=== PATIENT | male | born 1975 | race Caucasian/White ===

== ENCOUNTER 2021-10-29 01:48 | Emergency (ER) | payer MEDICAID, SELFPAY ==
--- NOTE | ~2021-10-29 | XR_ITS ---
EXAMINATION: XR CHEST CLINICAL INFORMATION: Overdose COMPARISON: 10/28/2021 TECHNIQUE: Frontal view of the chest was obtained. FINDINGS: Redemonstrated right hemidiaphragm elevation, likely with adjacent basilar atelectasis. Mild atelectasis is also suspected at the left base. No evidence of pneumothorax. Trace pleural effusions are difficult to exclude. No overt pulmonary edema. The cardiomediastinal contour is unremarkable. No acute osseous findings are seen. XR/XR chest 1V IMPRESSION: Elevated right hemidiaphragm with mild bibasilar opacities more suggestive of atelectasis. Trace pleural effusions cannot be excluded.
--- NOTE | ~2021-10-29 | CT_ITS ---
EXAMINATION: CT CERVICAL SPINE WITHOUT CONTRAST CLINICAL INFORMATION: Altered mental status, overdose, pain COMPARISON: None TECHNIQUE: Multidetector helical imaging was performed through the cervical spine. Coronal and sagittal reformatted images were created. This CT examination was performed using dose optimization techniques as appropriate, variously including the following: *Automated exposure control *Adjustment of mA and/or kV according to patient size (this includes techniques or standardized protocols for targeted exams where dose is matched to indication/reason for exam; i.e. extremities or head) *Use of iterative reconstruction technique DLP: 562 mGy-cm FINDINGS: Evaluation is limited due to motion artifact. There is anatomic alignment of the vertebral bodies and posterior elements. Vertebral body heights are maintained. There is disc space narrowing and endplate osteophyte formation throughout the mid and lower cervical spine. No evidence of acute fracture. No prevertebral soft tissue swelling. Visualized portions of the lung apices demonstrate a suture line at the right apex. The thyroid gland is unremarkable. CT/CT cervical spine wo con IMPRESSION: Limited assessment due to motion artifact. Grossly, no acute findings identified. Degenerative changes of the mid to lower cervical spine.
--- NOTE | ~2021-10-29 | CT_ITS ---
EXAMINATION: CT HEAD WITHOUT CONTRAST CLINICAL INFORMATION: Altered mental status, overdose COMPARISON: None TECHNIQUE: Contiguous axial imaging was performed from the skull base to vertex without intravenous administration of contrast. This CT examination was performed using dose optimization techniques as appropriate, variously including the following: *Automated exposure control *Adjustment of mA and/or kV according to patient size (this includes techniques or standardized protocols for targeted exams where dose is matched to indication/reason for exam; i.e. extremities or head) *Use of iterative reconstruction technique DLP: 720 mGy-cm FINDINGS: There is no evidence of acute intracranial hemorrhage or territorial infarction. No abnormal mass effect or midline shift is seen. Eagle to white matter differentiation is well preserved. No extra-axial fluid collections are identified. The ventricles are normal in size. There is no abnormal attenuation within the brain parenchyma. The osseous structures and soft tissues are normal. Trace mucosal thickening of the left maxillary sinus. The mastoid air cells are well-aerated. CT/CT head/brain wo con IMPRESSION: No acute intracranial pathology.
--- NOTE | ~2021-10-29 | CT_ITS ---
EXAMINATION: CONTRAST-ENHANCED CT OF THE CHEST; CONTRAST-ENHANCED CT OF THE ABDOMEN AND PELVIS INDICATION: Altered mental status, overdose, pain COMPARISON: Chest x-ray from earlier today TECHNIQUE: 100 mL Omnipaque 350 IV contrast was utilized. Multidetector helical imaging was performed through the chest, abdomen, and pelvis. Coronal and sagittal reformatted images were created at the technologist workstation. DLP: 2067 mGy-cm DOSE LOWERING TECHNIQUES: This CT examination was performed using dose optimization techniques as appropriate, variously including the following: - Automated exposure control - Adjustment of mA and/or kV according to patient size (this includes techniques or standardized protocols for targeted exams were dose is matched to indication/reason for exam; i.e. extremities or head) - Use of iterative reconstruction technique FINDINGS: Limited evaluation due to patient motion artifact. Chest: Semisolid material is noted in the trachea, suggesting sequelae of aspiration. Suture line is present at the right apex. There is volume loss in right hemithorax with right hemidiaphragm elevation. There is some opacification of the basilar right lower lobe favoring at least a component of atelectasis in this setting, though some superimposed consolidation such as from aspiration may also be present. There is dependent heterogeneous opacity in the left upper lobe. Bullae are noted at the left apex. No pneumothorax or pleural effusion. The visualized thyroid gland is unremarkable. No discrete mediastinal lymphadenopathy is seen, though evaluation is limited due to motion and lack of intravenous contrast. Cardiac size is within normal limits; no pericardial effusion. There is indeterminate hyperdense material at the medial right base adjacent to a suture line, suggesting postoperative sequelae. No axillary lymphadenopathy is present. No acute osseous findings are seen. Small sclerotic focus in the T6 vertebral body is statistically favored to represent a bone island. Scattered endplate osteophytes are present. Abdomen/Pelvis: The liver is homogeneous in attenuation without intrahepatic biliary ductal dilatation. The gallbladder is unremarkable. The spleen, pancreas, and adrenal glands are unremarkable. Bilateral nephrograms are symmetric. No hydronephrosis. No obstructing renal or ureteral calculi are present. The urinary bladder is unremarkable. The prostate and seminal vesicles are unremarkable. The small and large bowel are grossly unremarkable without evidence of obstruction or pericolonic inflammatory change. The appendix is unremarkable. No free fluid or free air is identified. Mild scattered atherosclerotic calcification. No retroperitoneal or pelvic lymphadenopathy is seen. No acute osseous findings. CT/CT abdomen pelvis wo con IMPRESSION: 1. Limited assessment due to patient motion artifact. 2. Semisolid material in the trachea, suggesting sequelae of aspiration in the setting of overdose. 3. Volume loss in the right hemithorax with evidence of prior surgery. Dependent bibasilar opacities are noted in the lungs; while some of this may be due to atelectasis, a component of aspiration may also be present. 4. Grossly, no acute findings identified in the abdomen/pelvis.
[2021-10-29 01:54] VITALS: BP 122/76; PULSE 71; RESP 14; TEMP 36.6; O2SAT 94; BMI 31.6
--- NOTE | 2021-10-29 01:55 | ECG_ITS ---
Test Reason : OVERDOSE Blood Pressure : / mmHG Vent. Rate : 081 BPM Atrial Rate : 081 BPM P-R Int : 312 ms QRS Dur : 102 ms QT Int : 426 ms P-R-T Axes : 037 033 022 degrees QTc Int : 494 ms Sinus rhythm with 1st degree A-V block Nonspecific ST and T wave abnormality Prolonged QTc Abnormal ECG No previous ECGs available Referred By: Lotus Varner Electronically Signed By:Star Nevarez
[2021-10-29 01:57] VITALS: BP 127/76; PULSE 57; RESP 10; O2SAT 94
[2021-10-29 02:00] LABS: Glucose, Whole Blood 130 mg/dL (60-115)
--- NOTE | 2021-10-29 02:03 | ED_ITS ---
HPI - Overdose General Chief Complaint: Overdose Stated Complaint: OD Time Seen by Provider: 10/29/21 01:55 Source: EMS Mode of arrival: EMS Limitations: altered mental status History of Present Illness HPI Narrative: per EMS found unresponsive at rest stop with 3 bags of presumed heroin, bumpers, sexual lubricants and male enhancers complaint: other (found unresponsive) Onset (ago): unknown Timing confirmed by: other (bystander called ) Intent: unknown How Overdose Was Discovered: other (bystander noted him in car) Associated symptoms: nausea/vomiting Treatments Prior to Arrival: narcan (6mg IN narcan no response, POC 111) Related Data Previous Rx's Medication Instructions Recorded amoxicillin 875 mg-potassium 1 tab PO BID #14 tabs 10/29/21 clavulanate 125 mg tablet Allergies Allergy/AdvReac Type Severity Reaction Status Date / Time No Known Allergies Allergy Verified 10/29/21 01:55 Review of Systems Review of Systems: ROS unable to be obtained due to altered mental status PMFSH Past Medical History Source: unable to obtain (AMS) Social History Social History Advance Directives: No Advance Directives Information Provided: No Advance Directives on File: No Physical Exam Vital Signs: Vital Signs: Last Vital Signs Temp 97.6 F 10/29/21 07:10 Pulse 77 10/29/21 07:10 Resp 18 10/29/21 07:10 BP 120/76 10/29/21 07:10 Pulse Ox 95 10/29/21 07:10 O2 Del Method 10/29/21 07:10 O2 Flow Rate 3 10/29/21 05:46 Oxygen Flow Rate 2 10/29/21 01:54 BMI result Body Mass Index 31.6 Appearance: Obtunded, Moderate acute distress. Eyes: pinpoint pupils ENT: Pharynx emesis noted on teeth covering chest and abdomen Neck: Normal inspection. Neck supple. CVS: Normal heart rate and rhythm. Pulses normal. Respiratory: No respiratory distress. Breath sounds diminished RLL Abdomen: Soft and non-tender. atraumatic : atraumatic Skin: Skin warm and dry. Normal skin color. Normal skin turgor. Extremities: No lower extremity edema. Neuro: Wakes up to painful stimuli and grabs at area, otherwise no purposeful interaction Course Course Course Narrative: state police showed up 215am and told transmitter engineer in charge that patient was dancing around the rest area and fell striking his head per bystanders no response to narcan - possible other ingestion vs xylazine adulterant given appearance of CXR empiric zosyn ordered 231am. no airway protection - will need to intubate patient at this time 253am repleting K and magnesium patient more awake and responding to stimuli - will hold off intubation, coughing on his open, waking to loud voice easily woken to voice but still cannot provide history says no and thank you at this time. 653am patient now awake alert and oriented x 3, he denies drug use, he is not hypoxic he is 95% on RA. He wants to talk to the police and figure out what happened. He is making coherent sentences. He is aware that he has aspiration pneumonia and we want to admit him and even though he seems okay now he may worsen in the next 12 to 24 hours. He still does not want to stay. Very rapid awakening ?GHB or other ingestion. Patient plans to leave AMA. MDM - Overdose MDM Narrative Medical decision making narrative: 46 yo male brought in by EMS unresponsive found in car with pinpoint pupils - he has emesis over his chest. He is not responding to narcan. He had bumpers on him as well. Found to have sexual enhancers and lubricants on his person. [place] CT scan for trauma ordered, labs. Tox screen. CXR for aspiration. Will place on oxygen and end tidal. May require intubation if he does not wake up. Will follow status closely, unknown ingestion. Lab Data Result diagrams: 10/29/21 01:53 10/29/21 01:53 Labs: Lab Results 10/29/21 10/29/21 10/29/21 Range/Units 01:53 01:53 01:54 WBC 8.2 (4.8-10.8) X10*3/uL RBC 4.70 (4.60-5.80) X10*6/uL Hgb 14.4 (14.0-18.0) g/dl Hct 42.3 (42.0-52.0) % MCV 90.0 (80.0-98.0) fL MCH 30.6 (27.0-33.0) pg MCHC 34.0 (31.0-36.0) g/dl RDW 13.2 (11.0-16.0) % Plt Count 406 H (160-400) X10*3/uL MPV 8.6 L (9.4-12.4) fL Immature Gran % (Auto) 0.2 (0.0-0.4) % Neut % (Auto) 49.4 (45-73) % Lymph % (Auto) 34.8 (20-40) % Weber % (Auto) 12.8 H (2-11) % Eos % (Auto) 2.3 (0-4) % Baso % (Auto) 0.5 (0-2) % Lymph # (Auto) 2.9 (1.2-4.9) X10*3/uL Weber # (Auto) 1.1 (0.1-1.2) X10*3/uL Eos # (Auto) 0.2 (0.0-0.4) X10*3/uL Baso # (Auto) 0.0 (0.0-0.2) X10*3/uL Abs Immat Gran (auto) 0.02 (0.00-0.03) X10*3/uL Absolute Neuts (auto) 4.1 (2.0-8.3) x10*3/uL Absolute Nucleated RBC 0.000 (0.0-0.012) X10*3/uL Nucleated RBC % (auto) 0.0 (0.0-0.2) /100WBC VBG pH (7.32-7.43) VBG pCO2 mmHg VBG pO2 mmHg VBG HCO3 (22-26) mmol/L VBG O2 Saturation % VBG Base Excess mmol/L Carboxyhemoglobin % % Sodium 143 (135-145) mmol/L Potassium 3.0 L (3.3-5.1) mmol/L Chloride 103 (96-108) mmol/L Carbon Dioxide 30 H (22-29) mmol/L Anion Gap 13 (12-20) BUN 23 H (9-16) mg/dL Creatinine 1.21 (0.5-1.4) mg/dL Estim Creat Clear Calc 87.7 Estimated GFR > 60 POC Glucose 130 H (60-115) mg/dL Random Glucose 133 H (60-115) mg/dL Lactic Acid (0.5-2.0) mmol/L Calcium 9.3 (8.4-10.2) mg/dL Magnesium 2.4 (1.6-2.6) mg/dL Total Bilirubin 0.5 (0.0-1.0) mg/dL Direct Bilirubin 0.2 (0.0-0.5) mg/dL AST 21 (5-37) U/L ALT 39 (0-40) U/L Alkaline Phosphatase 65 (39-117) U/L Ammonia (13-55) umol/L Total Creatine Kinase 116 (38-174) U/L Total Protein 7.4 (6.5-8.0) g/dL Albumin 4.4 (3.5-5.0) g/dL Salicylates < 5.0 L (15-30) mg/dL Acetaminophen < 1 (<30) mcg/mL Ethyl Alcohol < 10 mg/dL COVID-19 ([facility]) (Negative) COVID-19 Clin Com 10/29/21 10/29/21 10/29/21 Range/Units 01:59 02:10 03:05 WBC (4.8-10.8) X10*3/uL RBC (4.60-5.80) X10*6/uL Hgb (14.0-18.0) g/dl Hct (42.0-52.0) % MCV (80.0-98.0) fL MCH (27.0-33.0) pg MCHC (31.0-36.0) g/dl RDW (11.0-16.0) % Plt Count (160-400) X10*3/uL MPV (9.4-12.4) fL Immature Gran % (Auto) (0.0-0.4) % Neut % (Auto) (45-73) % Lymph % (Auto) (20-40) % Weber % (Auto) (2-11) % Eos % (Auto) (0-4) % Baso % (Auto) (0-2) % Lymph # (Auto) (1.2-4.9) X10*3/uL Weber # (Auto) (0.1-1.2) X10*3/uL Eos # (Auto) (0.0-0.4) X10*3/uL Baso # (Auto) (0.0-0.2) X10*3/uL Abs Immat Gran (auto) (0.00-0.03) X10*3/uL Absolute Neuts (auto) (2.0-8.3) x10*3/uL Absolute Nucleated RBC (0.0-0.012) X10*3/uL Nucleated RBC % (auto) (0.0-0.2) /100WBC VBG pH 7.38 (7.32-7.43) VBG pCO2 54 mmHg VBG pO2 248 mmHg VBG HCO3 32 H (22-26) mmol/L VBG O2 Saturation 100.0 % VBG Base Excess 5.4 mmol/L Carboxyhemoglobin % % Sodium (135-145) mmol/L Potassium (3.3-5.1) mmol/L Chloride (96-108) mmol/L Carbon Dioxide (22-29) mmol/L Anion Gap (12-20) BUN (9-16) mg/dL Creatinine (0.5-1.4) mg/dL Estim Creat Clear Calc Estimated GFR POC Glucose (60-115) mg/dL Random Glucose (60-115) mg/dL Lactic Acid 0.9 (0.5-2.0) mmol/L Calcium (8.4-10.2) mg/dL Magnesium (1.6-2.6) mg/dL Total Bilirubin (0.0-1.0) mg/dL Direct Bilirubin (0.0-0.5) mg/dL AST (5-37) U/L ALT (0-40) U/L Alkaline Phosphatase (39-117) U/L Ammonia (13-55) umol/L Total Creatine Kinase (38-174) U/L Total Protein (6.5-8.0) g/dL Albumin (3.5-5.0) g/dL Salicylates (15-30) mg/dL Acetaminophen (<30) mcg/mL Ethyl Alcohol mg/dL COVID-19 ([facility]ON) Negative (Negative) COVID-19 Clin Com See Note 10/29/21 10/29/21 Range/Units 03:05 03:15 WBC (4.8-10.8) X10*3/uL RBC (4.60-5.80) X10*6/uL Hgb (14.0-18.0) g/dl Hct (42.0-52.0) % MCV (80.0-98.0) fL MCH (27.0-33.0) pg MCHC (31.0-36.0) g/dl RDW (11.0-16.0) % Plt Count (160-400) X10*3/uL MPV (9.4-12.4) fL Immature Gran % (Auto) (0.0-0.4) % Neut % (Auto) (45-73) % Lymph % (Auto) (20-40) % Weber % (Auto) (2-11) % Eos % (Auto) (0-4) % Baso % (Auto) (0-2) % Lymph # (Auto) (1.2-4.9) X10*3/uL Weber # (Auto) (0.1-1.2) X10*3/uL Eos # (Auto) (0.0-0.4) X10*3/uL Baso # (Auto) (0.0-0.2) X10*3/uL Abs Immat Gran (auto) (0.00-0.03) X10*3/uL Absolute Neuts (auto) (2.0-8.3) x10*3/uL Absolute Nucleated RBC (0.0-0.012) X10*3/uL Nucleated RBC % (auto) (0.0-0.2) /100WBC VBG pH (7.32-7.43) VBG pCO2 mmHg VBG pO2 mmHg VBG HCO3 (22-26) mmol/L VBG O2 Saturation % VBG Base Excess mmol/L Carboxyhemoglobin % 1.7 % Sodium (135-145) mmol/L Potassium (3.3-5.1) mmol/L Chloride (96-108) mmol/L Carbon Dioxide (22-29) mmol/L Anion Gap (12-20) BUN (9-16) mg/dL Creatinine (0.5-1.4) mg/dL Estim Creat Clear Calc Estimated GFR POC Glucose (60-115) mg/dL Random Glucose (60-115) mg/dL Lactic Acid (0.5-2.0) mmol/L Calcium (8.4-10.2) mg/dL Magnesium (1.6-2.6) mg/dL Total Bilirubin (0.0-1.0) mg/dL Direct Bilirubin (0.0-0.5) mg/dL AST (5-37) U/L ALT (0-40) U/L Alkaline Phosphatase (39-117) U/L Ammonia 61 H (13-55) umol/L Total Creatine Kinase (38-174) U/L Total Protein (6.5-8.0) g/dL Albumin (3.5-5.0) g/dL Salicylates (15-30) mg/dL Acetaminophen (<30) mcg/mL Ethyl Alcohol mg/dL COVID-19 ([facility]ON) (Negative) COVID-19 Clin Com ECG Data Attestation: I personally reviewed and interpreted this ECG as follows: ECG interpretation date: 10/29/21 ECG interpretation time: 03:00 Interpretation: Rate: 81 Rhythm: NSR with 1st degree AVB Newberg: normal Normal P waves. 1st degree AVB Normal QRS complex. ST T wave : nonspecific no MALATHI qTC: prolonged prior studies: The study has been interpreted contemporaneously by me. . Critical Care Time Critical Care Time Critical Care Time: Yes Total Critical Care Time: 90 Attestation: repeat reassessments, IV narcan, trauma CT scans, labs, IV antibiotics I attest to this time spent taking care of the patient Discharge Plan Discharge Clinical Impression: Acute alteration in mental status, Drug overdose, Acute hypokalemia, Prolonged QT interval Aspiration pneumonia Qualifiers: Aspiration pneumonia type: unspecified Laterality: unspecified laterality Lung location: unspecified part of lung Qualified Code(s): J69.0 - Pneumonitis due to inhalation of food and vomit Patient Disposition: Left Against Medical Advice Instructions: Hypokalemia (ED), Aspiration Pneumonia (DC), Acute Delirium (ED), Against Medical Advice (ED) Additional Instructions: return to ED for any worsening symptoms or concerns you have aspiration in your lungs after vomiting while unconscious, it was recommended you stay in the hospital but you refused. You could get much worse including low oxygen levels, sepsis or from infection. Monitor your breathing. If you have any concerns please seek immediate medical care. Take antibiotics. your potassium was low please follow up with your doctor on Sunday to recheck the level. Prescriptions: New amoxicillin-pot clavulanate 875-125 mg tablet 1 tab PO BID Qty: 14 0RF Referrals: Physician,Unknown J [Primary Care Provider] - 10/31/21 (PCP on Sunday )
[2021-10-29] MEDS: Naloxone HCl 0.4 MG/ML VIAL 1 MG IVPUSH (02:08)
[2021-10-29] MEDS: ondansetron HCL 4 MG/2 ML VIAL IVPUSH (02:08)
[2021-10-29] MEDS: Naloxone HCl 0.4 MG/ML VIAL IVPUSH ×2 (02:08)
--- NOTE | 2021-10-29 02:08 | PC.NURSE ---
pt given 2x .4mg IV narcan on arrival with no relief, pt given 1mg IV narcan shortly after, MD Varner at bedside giving verbal orders for these medications due to emergent situation
[2021-10-29 02:10] VITALS: RESP 9
[2021-10-29 02:10] LABS: MANUAL DIFF FLAG NO
[2021-10-29 02:13] LABS: Venous Blood Gas Refer to POC result
[2021-10-29 02:14] LABS: VBG Base Excess 5.4 mmol/L; VBG HCO3 32 mmol/L (22-26); VBG pCO2 54 mmHg; VBG pH 7.38 (7.32-7.43); VBG pO2 248 mmHg
[2021-10-29 02:15] LABS: Basophils Percent Auto 0.5 % (0-2); Eosinophils Absolute Auto 0.2 X10*3/uL (0.0-0.4); Eosinophils Percent Auto 2.3 % (0-4); Hematocrit 42.3 % (42.0-52.0); Hemoglobin 14.4 g/dl (14.0-18.0); Imm Gran Abs Auto 0.02 X10*3/uL (0.00-0.03); Imm Gran Pct Auto 0.2 % (0.0-0.4); Lymphocytes Absolute Auto 2.9 X10*3/uL (1.2-4.9); Lymphocytes Percent Auto 34.8 % (20-40); Mean Corpuscular Hemoglobin 30.6 pg (27.0-33.0); Mean Platelet Volume 8.6 fL (9.4-12.4); Monocytes Absolute Auto 1.1 X10*3/uL (0.1-1.2); Monocytes Percent Auto 12.8 % (2-11); Neutrophils Absolute Auto 4.1 x10*3/uL (2.0-8.3); Neutrophils Percent Auto 49.4 % (45-73); Platelet Count 406 X10*3/uL (160-400); Red Cell Distribution Width 13.2 % (11.0-16.0); White Blood Count 8.2 X10*3/uL (4.8-10.8)
[2021-10-29 02:28] LABS: COVID-19 Test Negative (Negative)
[2021-10-29 02:38] LABS: Acetaminophen LAB < 1 mcg/mL (<30); Alanine Aminotransferase 39 U/L (0-40); Albumin Level 4.4 g/dL (3.5-5.0); Alkaline Phosphatase 65 U/L (39-117); Anion Gap 13 (12-20); Aspartate Amino Transferase 21 U/L (5-37); Bilirubin Direct 0.2 mg/dL (0.0-0.5); Bilirubin Total 0.5 mg/dL (0.0-1.0); Blood Urea Nitrogen 23 mg/dL (9-16); Calcium 9.3 mg/dL (8.4-10.2); Carbon Dioxide 30 mmol/L (22-29); Chloride 103 mmol/L (96-108); Creatinine Clr Calc Pharmacy 87.7; Estimated Glomerular Filt Rate > 60; Glucose Random 133 mg/dL (60-115); Salicylate < 5.0 mg/dL (15-30); Sodium 143 mmol/L (135-145); Total Protein 7.4 g/dL (6.5-8.0)
[2021-10-29 02:54] LABS: Ethanol < 10 mg/dL
[2021-10-29] MEDS: Piperacillin Sodium/Tazobactam 3.375 GM in 0.9 % Sodium Chloride 50 ML IV (03:06)
[2021-10-29 03:17] LABS: Magnesium 2.4 mg/dL (1.6-2.6)
[2021-10-29 03:20] LABS: Carbon Monoxide Refer to POC result
[2021-10-29] MEDS: Magnesium Sulfate/H2O 2 GM/50 ML PIGGYBACK IV (03:20)
[2021-10-29] MEDS: Potassium Chloride/H20 10 MEQ/100 ML PIGGYBACK 100 MEQ IV ×2 (03:21→04:58)
[2021-10-29 03:22] LABS: Carbon Monoxide POC 1.7 %
[2021-10-29 03:28] LABS: Ammonia 61 umol/L (13-55); Lactic Acid 0.9 mmol/L (0.5-2.0)
[2021-10-29] MEDS: Lactated Ringers 1,000 ML 999 ML IV (03:30)
--- NOTE | 2021-10-29 03:45 | PC.NURSE ---
pt more arousable to painful stimuli, decision made by MD not to intubate at this time.
[2021-10-29 04:00] VITALS: BP 102/67; PULSE 82; RESP 8; O2SAT 99
[2021-10-29 05:46] VITALS: BP 125/78; PULSE 68; RESP 9; O2SAT 98
[2021-10-29 07:10] VITALS: BP 120/76; PULSE 77; RESP 18; TEMP 36.4; O2SAT 95
--- NOTE | 2021-10-29 07:44 | PC.NURSE ---
pt refused admission and will be discharged to home.
--- NOTE | 2021-10-29 09:11 | PHA.MEDREC ---
Pharmacy Consult ? Medication Reconciliation Patient left AMA. No med rec completed.
== END 2021-10-29 08:32 | disposition left against medical advice (07) ==
PROVIDERS: Emergency Provider Emergency Medicine
DX: T50.901A Poisoning by unspecified drugs, medicaments and biological substances, accidental (unintentional), initial encounter (principal); R40.4 Transient alteration of awareness; Y92.810 Car as the place of occurrence of the external cause; J69.0 Pneumonitis due to inhalation of food and vomit; E87.6 Hypokalemia; R94.31 Abnormal electrocardiogram [ECG] [EKG]; Z20.822 Contact with and (suspected) exposure to COVID-19
CPT/HCPCS: 36415; 70450; 71045; 71250; 72125; 74176; 80048; 80076; 80143; 80179; 82077; 82140; 82375; 82550; 82803; 82947; 83605; 83735; 85025; 87040; 87635; 93005; 96361; 96365; 96366; 96375; 99285; J2405; J2543; J3475